=== PATIENT | male | born 1960 ===

== ENCOUNTER 2021-10-10 11:15 | Emergency (ER) | payer OTHER ==
[2021-10-10 11:59] VITALS: BP 136/78; PULSE 90; TEMP 98.4; BMI 26.6
[2021-10-10] MEDS ORDERED: IBUPROFEN 400 MG TABLET (FP) PO ONE ×2 (12:52→13:04)
== END 2021-10-10 13:10 | disposition home or self-care (01) ==
LOC: JERFT 11:15
DX: S80.211A Abrasion, right knee, initial encounter (principal); S80.212A Abrasion, left knee, initial encounter; S39.012A Strain of muscle, fascia and tendon of lower back, initial encounter; V49.40XA Driver injured in collision with unspecified motor vehicles in traffic accident, initial encounter
CPT/HCPCS: 99283-25